=== PATIENT | female | born 1950 | race Caucasian/White ===

== ENCOUNTER → 2017-03-15 | Outpatient (CLI) | payer MEDICARE, BC ==
[~2017-03-15] MED LIST: LYRICA 25MG CAP25 MG; PROMETHAZINE12.5 M5 PO; ZOFRAN 4MG T4 MG/TAB PO
== END ==
LOC: COL.RAD 03-13 10:30
DX: N28.89 Other specified disorders of kidney and ureter (principal); Q63.2 Ectopic kidney

== ENCOUNTER → 2017-03-29 | Outpatient (CLI) | payer MEDICARE, BC | LOC: COL.RAD 12:22 | DX: R10.12 Left upper quadrant pain (principal); R93.429 Abnormal radiologic findings on diagnostic imaging of unspecified kidney | CPT/HCPCS: A9562; J1940 ==

== ENCOUNTER → 2018-03-06 | Outpatient (CLI) | payer MEDICARE, BC ==
[2018-03-06 13:49] LABS: HEMATOCRIT 41.7 % (37.0-47.0); MEAN CELL VOLUME 86 fl (80.0-100.0); MEAN CORPUSCULAR HEMOGLOBIN 29 pg (27.0-31.0); MEAN CORPUSCULAR HGB CONC 34 g/dl (33.0-37.0); MEAN PLATELET VOLUME 9.2 fl (7.4-10.4); PLATELET COUNT 361 K/mm3 (130-400); RED BLOOD COUNT 4.83 M/mm3 (4.10-5.30); REDCELL DISTRIBUTION WIDTH-CV 13.1 % (11.5-14.5)
[2018-03-06 15:45] LABS: BAND 1 % (0-10); BASOPHIL 1 % (0-2); EOSINOPHIL 3 % (0-4); LYMPHOCYTE 34 % (20.0-51.0); NEUTROPHILS 58 % (42.0-75.2); PLATELET ESTIMATE NORMAL (NORMAL)
== END ==
LOC: COL.LAB 13:27
PROVIDERS: Nurse Practitioner Family
DX: A78 Q fever (principal)

== ENCOUNTER → 2018-04-05 | Outpatient (CLI) | payer MEDICARE, BC | LOC: MC.RAD 06:53 | DX: N63.20 Unspecified lump in the left breast, unspecified quadrant (principal) | CPT/HCPCS: G0279 ==

== ENCOUNTER → 2019-02-07 | Outpatient (CLI) | payer MEDICARE, BC | LOC: COL.RAD 08:25 | DX: Z01.812 Encounter for preprocedural laboratory examination (principal); R10.11 Right upper quadrant pain | CPT/HCPCS: Q9967 ==

== ENCOUNTER → 2019-10-01 | Outpatient (CLI) | payer MEDICARE, BC | LOC: MC.RAD 10:52 | DX: Z12.31 Encounter for screening mammogram for malignant neoplasm of breast (principal) ==

== ENCOUNTER 2020-07-15 05:33 | Emergency (ER) | payer MEDICARE, BC ==
[~2020-07-15] VITALS: Ht 160 cm; Wt 72.7 kg
[2020-07-15 05:33] VITALS: TEMP 96.7
[2020-07-15 05:58] LABS: BASO # 0.1 (0.0-0.2); BASO % 0.7 % (0.0-2.0); EOS # 0.4 (0.0-0.7); EOS % 5.5 % (0-4.0); GRAN # 4.1 (1.4-6.5); HEMOGLOBIN 11.1 g/dl (12.5-16.0); LYMPH # 1.8 (1.2-3.4); LYMPH % 25.5 % (20.0-51.0); MEAN CELL VOLUME 88 fl (80.0-100.0); MEAN CORPUSCULAR HEMOGLOBIN 28 pg (27.0-31.0); MEAN CORPUSCULAR HGB CONC 32 g/dl (33.0-37.0); MONO # 0.7 (0.1-0.6); MONO % 9.5 % (1.7-9.3); PLATELET COUNT 295 K/mm3 (130-400); RED BLOOD COUNT 3.92 M/mm3 (4.10-5.30); REDCELL DISTRIBUTION WIDTH-CV 14.4 % (11.5-14.5)
[2020-07-15 06:01] LABS: HEMATOCRIT 34.6 % (37.0-47.0)
[2020-07-15] MEDS ORDERED: NEURONTIN300 MG/CAP PO (06:10)
[2020-07-15] MEDS ORDERED: CYMBALTA 30MG30 MG PO (06:11)
[2020-07-15] MEDS ORDERED: LIPITOR 40MG TA40 MG PO (06:11)
[2020-07-15 06:12] LABS: ALANINE AMINOTRANSFERASE 14 U/L (4-34); ALBUMIN 3.6 gm/dL (3.5-5.0); ALKALINE PHOSPHATASE 54 U/L (50-136); ANION GAP 4 mmol/L (7-16); AST,SGOT 20 U/L (15-37); BILIRUBIN,TOTAL 0.3 mg/dL (0.0-1.0); BLOOD UREA NITROGEN 16 mg/dL (7-17); CALCIUM 7.9 mg/dL (8.4-10.2); CARBON DIOXIDE 23 mmol/L (22-30); CHLORIDE 111 mmol/L (98-107); GLUCOSE 122 mg/dL (74-106); POTASSIUM 4.1 mmol/L (3.4-5.0); SODIUM 138 mmol/L (137-145); TOTAL PROTEIN 6.6 gm/dL (6.4-8.2)
[2020-07-15] MEDS ORDERED: PRIL40 PO (06:12)
[2020-07-15] MEDS ORDERED: ZANAFLEX 4MG TAB4 MG PO (06:13)
[2020-07-15 06:24] LABS: TROPONIN-I < 0.012 ng/mL (0.000-0.035)
[2020-07-15] MEDS ORDERED: NORCO 325 MG-51 TAB PO (08:20)
[2020-07-15 08:45] VITALS: BP 119/78; PULSE 54
[2020-07-15] MEDS ORDERED: CRUTCHES MC (09:13)
== END 2020-07-15 09:05 | disposition home or self-care (01) ==
LOC: COL.ER 05:33
PROVIDERS: Emergency Medicine
DX: S82.851A Displaced trimalleolar fracture of right lower leg, initial encounter for closed fracture (principal); I10 Essential (primary) hypertension; W01.198A Fall on same level from slipping, tripping and stumbling with subsequent striking against other object, initial encounter; Y93.01 Activity, walking, marching and hiking; Y92.091 Bathroom in other non-institutional residence as the place of occurrence of the external cause
CPT/HCPCS: J7040

== ENCOUNTER → 2020-12-27 | Outpatient (CLI) | payer MEDICARE, BC ==
[~2020-12-27] MED LIST changes: +CRUTCHES MC; +CYMBALTA 30MG30 MG PO; +LIPITOR 40MG TA40 MG PO; +NEURONTIN300 MG/CAP PO; +NORCO 325 MG-51 TAB PO; +PRIL40 PO; +ZANAFLEX 4MG TAB4 MG PO
== END ==
LOC: MC.RAD 14:17
DX: Z12.31 Encounter for screening mammogram for malignant neoplasm of breast (principal)

== ENCOUNTER → 2021-06-10 | Outpatient (CLI) | payer MEDICARE, BC | LOC: COL.RAD 12:48 | DX: M51.26 Other intervertebral disc displacement, lumbar region (principal); M47.816 Spondylosis without myelopathy or radiculopathy, lumbar region ==

== ENCOUNTER → 2021-07-21 | Outpatient (CLI) | payer MEDICARE, BC ==
[~2021-07-21] MED LIST changes: +AMBIEN 10MG10 MG PO; +CALCIUM 600MG+D1 TAB PO; +CARAFATE 1GM1 G PO; +CYMBALTA 60MG60 MG PO; +LIPITOR 80MG80 MG PO; +NORVASC2.5 MG PO; +TEMOVATE0.05% TP; +TIMOLOL MALEATE5 M1 OP; +VITAMIN D31000 I1 PO; +XALATAN EYE DROPS OD; +XANAX 0.5MG0.5 MG PO; +ZETIA 10MG TAB10 MG PO
== END ==
LOC: COL.RAD 08:03
DX: Z01.812 Encounter for preprocedural laboratory examination (principal)
CPT/HCPCS: Q9967

== ENCOUNTER → 2021-08-10 | Outpatient (CLI) | payer MEDICARE, BC ==
[~2021-08-10] MED LIST changes: +ASPERCREME1 EACH TP
== END ==
LOC: MHCPAIN 12:38
DX: M54.50 Low back pain, unspecified (principal); M54.2 Cervicalgia; R29.6 Repeated falls; R26.89 Other abnormalities of gait and mobility; R07.81 Pleurodynia
CPT/HCPCS: G0463

== ENCOUNTER → 2021-08-10 | Outpatient (CLI) | payer MEDICARE, BC ==
[~2021-08-10] MED LIST changes: -ASPERCREME1 EACH TP
== END ==
LOC: COL.LAB 14:39
DX: M54.50 Low back pain, unspecified (principal); M54.2 Cervicalgia; R29.2 Abnormal reflex; R26.89 Other abnormalities of gait and mobility; R07.81 Pleurodynia

== ENCOUNTER 2021-08-16 15:15 | Emergency (ER) | payer MEDICARE, BC ==
[~2021-08-16] VITALS: Ht 157.5 cm; Wt 77.3 kg
[2021-08-16 15:32] VITALS: TEMP 99.2
[2021-08-16] MEDS ORDERED: ASPERCREME1 EACH TP (18:38)
[2021-08-16 18:44] VITALS: BP 150/87; PULSE 96
== END 2021-08-16 18:50 | disposition home or self-care (01) ==
LOC: COL.ER 15:15
DX: S29.9XXA Unspecified injury of thorax, initial encounter (principal); W17.89XA Other fall from one level to another, initial encounter; W22.8XXA Striking against or struck by other objects, initial encounter

== ENCOUNTER → 2021-09-06 | Outpatient (CLI) | payer MEDICARE, BC ==
[~2021-09-06] MED LIST changes: +ASPERCREME1 EACH TP
== END ==
LOC: COL.RAD 12:40
DX: M47.812 Spondylosis without myelopathy or radiculopathy, cervical region (principal); M48.02 Spinal stenosis, cervical region

== ENCOUNTER → 2021-09-14 | Outpatient (CLI) | payer MEDICARE, BC | LOC: MHCPAIN 13:25 | DX: M54.2 Cervicalgia (principal); R29.2 Abnormal reflex; R26.89 Other abnormalities of gait and mobility; R29.6 Repeated falls | CPT/HCPCS: G0463 ==

== ENCOUNTER → 2021-10-26 | Outpatient (CLI) | payer MEDICARE, BC | LOC: COL.RAD 07:29 | DX: G31.9 Degenerative disease of nervous system, unspecified (principal); M50.221 Other cervical disc displacement at C4-C5 level; M50.222 Other cervical disc displacement at C5-C6 level; M48.02 Spinal stenosis, cervical region | CPT/HCPCS: A9575 ==

== ENCOUNTER → 2021-10-31 | Outpatient (CLI) | payer MEDICARE, BC | LOC: MHCPAIN 11:14 | DX: M54.59 Other low back pain (principal); M54.2 Cervicalgia; M47.812 Spondylosis without myelopathy or radiculopathy, cervical region; G44.86 Cervicogenic headache; R29.6 Repeated falls | CPT/HCPCS: G0463 ==

== ENCOUNTER → 2021-12-06 | Outpatient (CLI) | payer MEDICARE, BC ==
[2021-12-06 16:39] LABS: CALCIUM 10.2 mg/dL (8.4-10.2); CREATININE, serum 1.33 mg/dL (0.57-1.11); POTASSIUM 3.6 mmol/L (3.5-4.5)
== END ==
LOC: COL.LAB 16:02
PROVIDERS: Nurse Practitioner Family
DX: E87.5 Hyperkalemia (principal)

== ENCOUNTER 2022-04-04 13:24 | Emergency (ER) | payer MEDICARE, BC ==
[~2022-04-04] VITALS: Ht 157.5 cm; Wt 79.5 kg
[2022-04-04 19:05] VITALS: BP 145/78; PULSE 76
== END 2022-04-04 19:05 | disposition home or self-care (01) ==
LOC: COL.ER 13:24
DX: S09.90XA Unspecified injury of head, initial encounter (principal); S05.11XA Contusion of eyeball and orbital tissues, right eye, initial encounter; S80.212A Abrasion, left knee, initial encounter; S80.211A Abrasion, right knee, initial encounter; W18.30XA Fall on same level, unspecified, initial encounter; W22.8XXA Striking against or struck by other objects, initial encounter

== ENCOUNTER → 2022-05-04 | Outpatient (CLI) | payer MEDICARE, BC | LOC: MC.RAD 09:20 | DX: Z12.31 Encounter for screening mammogram for malignant neoplasm of breast (principal) ==